=== PATIENT | female | born 1990 | race Two or more races ===

== ENCOUNTER 2021-07-14 09:48 | Emergency (ER) | payer OTHER ==
[~2021-07-14] VITALS: Ht 175.3 cm; Wt 86.2 kg
[2021-07-14] MEDS ORDERED: SYNTHROID50 MCG PO (10:13)
== END 2021-07-14 13:24 | disposition home or self-care (01) ==
LOC: ER 09:48
DX: J01.90 Acute sinusitis, unspecified (principal); R07.0 Pain in throat; U07.1 COVID-19; B34.9 Viral infection, unspecified